=== PATIENT | female | born 1990 | race Hispanic/Latino ===

== ENCOUNTER 2018-09-02 17:34 | Emergency (ER) | payer OTHER ==
[~2018-09-02] VITALS: Ht 160 cm; Wt 66.7 kg
--- OUTSIDE RECORDS SUMMARY | 2018-09-02 17:36 | XMS REPORT ---
Author [facility] Address Unknown Phone Unavailable Care Team Providers Care Hel[employer] Name Role Phone Unavailable Unavailable Payers Payer Name Policy Type Policy Number Effective Date Expiration Date Problems This patient has no known problems. Allergies, Adverse Reactions, Alerts Allergy Name Allergy Type Status Severity Reaction(s) Onset Date Inactive Date Treating Clinician Comments No Known Allergies DA Active U 2018-08-03 00:00:00 Medications This patient has no known medications. Results Test Description Test Time Test Comments Text Results Atomic Results Result Comments HCG SERUM QUAL 2018-08-07 07:06:00 HCG SERUM QUAL (test code=HCGQL) NEGATIVE NEGATIVE
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
[2018-09-02 19:24] VITALS: BP 118/75
== END 2018-09-02 19:34 | disposition home or self-care (01) ==
LOC: ER 17:34
DX: S00.83XA Contusion of other part of head, initial encounter (principal); S00.03XA Contusion of scalp, initial encounter; R42 Dizziness and giddiness; V43.52XA Car driver injured in collision with other type car in traffic accident, initial encounter; Y92.488 Other paved roadways as the place of occurrence of the external cause
CPT/HCPCS: 70450; 72125; 81025; 99283